=== PATIENT | female | born 1950 | race Caucasian/White ===

== ENCOUNTER 2023-06-27 15:22 | Emergency (ER) | payer MEDICARE ==
[~2023-06-27] VITALS: Ht 167.6 cm; Wt 47.6 kg
[2023-06-27 15:25] VITALS: BP 158/88; PULSE 67; RESP 16
[2023-06-27] MEDS ORDERED: IBUPROFEN 200 MG TAB PO ONE (18:00)
== END 2023-06-27 17:45 | disposition left against medical advice (07) ==
LOC: EDH 15:22
DX: S89.82XA Other specified injuries of left lower leg, initial encounter (principal); W18.30XA Fall on same level, unspecified, initial encounter; Y93.89 Activity, other specified; Y92.89 Other specified places as the place of occurrence of the external cause; Y99.8 Other external cause status
CPT/HCPCS: 73560